=== PATIENT | male | born 1985 | race Asian ===

== ENCOUNTER 2018-07-05 07:18 | Emergency (ER) | payer BC ==
[~2018-07-05] VITALS: Ht 170.2 cm; Wt 109.0 kg
[2018-07-05 07:19] VITALS: RESP 22; Ht 170.2 cm; Wt 109.0 kg
[2018-07-05] MEDS ORDERED: ACETAMINOPHEN 500 MG TAB PO STA (07:31)
[2018-07-05] MEDS ORDERED: ONDANSETRON (ODT) 4 MG TAB ODT STA (07:31)
[2018-07-05] MEDS ORDERED: ONDANSETRON 4 MG INJ IV STA (07:51)
[2018-07-05] MEDS ORDERED: SOD CHLORIDE 0.9% 1,000 ML IV STA (07:51)
[2018-07-05] MEDS ORDERED: ONDA4TAB14 PO (08:52)
[2018-07-05] MEDS ORDERED: ACET325T33 PO (08:52)
[2018-07-05 09:19] VITALS: BP 125/76; PULSE 80
[2018-07-05] MEDS ORDERED: HYDROCODONE/APAP (5/325) TAB PO ONE (09:30)
--- NOTE | 2018-07-05 10:40 | ERD ---
ER Documentation Chief Complaint Chief Complaint NAUSEA/VOMITTING/DIARRHEA/ABD PAIN STARTED AT 4 AM HPI 33-year-old male presenting with nausea vomiting diarrhea. Patient has had abdominal pain since this morning. Has some mild epigastric pain. Has never had this before. Medical history is gout. NKDA. Surgical history denies. Social history smokes less than a pack a day. Drug use occasionally uses cocaine and marijuana however has not use in the last 4 months. ROS All systems reviewed and are negative except as per history of present illness. Medications Home Meds Active Scripts Acetaminophen* (Tylenol*) 325 Mg Tablet, 2 TAB PO Q6 PRN for PAIN AND OR ELEVATED TEMP, #20 TAB Prov:ASHLEY HARRIS PA-C 07/05/18 Ondansetron (Ondansetron Odt) 4 Mg Tab.rapdis, 4 MG PO Q6H PRN for NAUSEA AND/OR VOMITING, #10 TAB Prov:ASHLEY HARRIS PA-C 07/05/18 FmHx Family History: No diabetes, No coronary disease, No other Physical Exam Vitals Vital Signs Date Temp Pulse Resp B/P (MAP) Pulse Ox O2 O2 Flow FiO2 Time Delivery Rate 07/05/18 80 125/76 99 Room Air 09:19 (92) 07/05/18 98.5 90 22 127/86 97 07:19 (100) Physical Exam GENERAL: The patient is well-appearing, well-nourished, in no acute distress HEENT: Atraumatic. Conjunctivae are pink. Pupils equal, round, and reactive to light. There is no scleral icterus. Tympanic membranes clear bilaterally. Oropharynx clear. NECK: C-spine is soft and supple. There is no meningismus. There is no cervical lymphadenopathy. CHEST: Clear to auscultation bilaterally. There are no rales, wheezes or rhonchi. HEART: Regular rate and rhythm. No murmurs, clicks, rubs or gallops. ABDOMEN: Active bowel sounds. No distention. No organomegaly. Tender to palpation in the epigastric region. Result Diagram: 07/05/18 0810 07/05/18 0810 Results 24 hrs Laboratory Tests Test 07/05/18 08:10 White Blood Count 14.2 10^3/ul Red Blood Count 6.25 10^6/ul Hemoglobin 13.5 g/dl Hematocrit 43.6 % Mean Corpuscular Volume 69.8 fl Mean Corpuscular Hemoglobin 21.6 pg Mean Corpuscular Hemoglobin Concent 31.0 g/dl Red Cell Distribution Width 15.1 % Platelet Count 333 10^3/UL Mean Platelet Volume 11.2 fl Immature Granulocytes % 0.600 % Neutrophils % 81.9 % Lymphocytes % 10.7 % Monocytes % 5.7 % Eosinophils % 0.7 % Basophils % 0.4 % Nucleated Red Blood Cells % 0.0 /100WBC Immature Granulocytes # 0.080 10^3/ul Neutrophils # 11.6 10^3/ul Lymphocytes # 1.5 10^3/ul Monocytes # 0.8 10^3/ul Eosinophils # 0.1 10^3/ul Basophils # 0.1 10^3/ul Nucleated Red Blood Cells # 0.0 10^3/ul Urine Color YELLOW Urine Clarity SLIGHTLY CLOUDY Urine pH 5.0 Urine Specific [place] 1.025 Urine Ketones NEGATIVE mg/dL Urine Nitrite NEGATIVE mg/dL Urine Bilirubin NEGATIVE mg/dL Urine Urobilinogen NEGATIVE mg/dL Urine Leukocyte Esterase NEGATIVE [place]/ul Urine Microscopic RBC 0 /HPF Urine Microscopic WBC 2 /HPF Urine Mucus FEW /HPF Urine Hemoglobin 1+ mg/dL Urine Glucose NEGATIVE mg/dL Urine Total Protein NEGATIVE mg/dl Sodium Level 140 mmol/L Potassium Level 3.8 mmol/L Chloride Level 102 mmol/L Carbon Dioxide Level 24 mmol/L Anion Gap 14 Blood Urea Nitrogen 10 mg/dl Creatinine 0.64 mg/dl Est Glomerular Filtrat Rate mL/min > 60 mL/min Glucose Level 126 mg/dl Calcium Level 9.3 mg/dl Total Bilirubin 0.2 mg/dl Direct Bilirubin 0.00 mg/dl Indirect Bilirubin 0.2 mg/dl Aspartate Amino Transf (AST/SGOT) 42 IU/L Alanine Aminotransferase (ALT/SGPT) 38 IU/L Alkaline Phosphatase 93 IU/L Total Protein 8.2 g/dl Albumin 4.5 g/dl Globulin 3.70 g/dl Albumin/Globulin Ratio 1.21 Lipase 45 U/L Current Medications Medications Dose Sig/Maxime Start Time Status Last (Trade) Ordered Route PRN Stop Time Admin Dose Reason Admin Ondansetron 4 mg ONCE STAT 07/05/18 DC 07/05/18 HCl (Zofran ODT 07:31 07/05/18 07:35 Odt) 07:32 1,000 mg ONCE STAT 07/05/18 DC 07/05/18 Acetaminophen PO 07:31 07/05/18 07:35 (Tylenol 07:32 Tab) Sodium 1,000 ml @ Q1H STAT 07/05/18 DC 07/05/18 Chloride 1,000 mls/hr IV 07:51 07/05/18 08:14 08:50 Ondansetron 4 mg ONCE STAT 07/05/18 DC 07/05/18 HCl (Zofran IV 07:51 07/05/18 08:14 Inj) 07:52 1 tab ONCE ONCE 07/05/18 DC 07/05/18 Acetaminophen PO 09:30 07/05/18 09:18 / 09:30 Hydrocodone Bitart ([place] (5/325)) Procedures/MDM DIAGNOSTIC IMAGING REPORT Patient: RADHA MJEÍA : 1985 Age: 33 Sex: M MR #: [id number] DOS: 07/05/18 0751 Ordering MD: LARRY HARRIS PA-C Location: E Room/Bed: PROCEDURE: Ultrasound gallbladder CLINICAL INDICATION: abdominal pain TECHNIQUE: Bonilla scale, color flow and Doppler ultrasound images of the abdomen. COMPARISON: None FINDINGS: Pancreas: Obscured by shadowing bowel gas. Liver: Liver demonstrates normal size and echotexture. No parenchymal lesions are identified. Normal directional flow toward the liver is demonstrated in the main portal vein. Gallbladder: There is a prominent 3.5 cm stone within the gallbladder. No appreciable thickening of the gallbladder wall. No pericholecystic fluid. Biliary system: No significant dilatation of the intrahepatic or extrahepatic biliary system. Common bile duct measures 4.5 mm. Right Kidney: Measures 11.9 cm in length. No hydronephrosis, intrarenal calcification or parenchymal lesion. No abnormal perinephric fluid. Additional findings: None IMPRESSION: Large 3.5 cm echogenic stone within the gallbladder. No wall thickening or pericholecystic fluid to indicate acute inflammation. ER Course: 1L NS given in ED. Zofran given in ED. Patient able to tolerate POs MDM: 3-year-old male presenting with epigastric pain and vomiting. Patient has had cholelithiasis however low suspicion for cholecystitis at this time. Patient's blood work and imaging is within normal limits. Patient is tolerating p.o.'s. I have low suspicion for choledocholithiasis, cholecystitis, cholangitis or pancreatitis. I have low suspicion for dehydration. Patient is discharged with strict ER precautions and supportive medications. He is told if symptoms change or worsen to return immediately to the ER. All questions answered at discharge Departure Diagnosis: Primary Impression: Gallstones Additional Impression: Nausea and vomiting Condition: Stable Patient Instructions: Gallstones, Nausea and Vomiting-Adult Referrals: [facility] YOU HAVE RECEIVED A MEDICAL SCREENING EXAM AND THE RESULTS INDICATE THAT YOU DO NOT HAVE A CONDITION THAT REQUIRES URGENT TREATMENT IN THE EMERGENCY DEPARTMENT. FURTHER EVALUATION AND TREATMENT OF YOUR CONDITION CAN WAIT UNTIL YOU ARE SEEN IN YOUR DOCTORS OFFICE WITHIN THE NEXT 1-2 DAYS. IT IS YOUR RESPONSIBILITY TO MAKE AN APPOINTMENT FOR FOLOW-UP CARE. IF YOU HAVE A PRIMARY DOCTOR --you should call your primary doctor and schedule an appointment IF YOU DO NOT HAVE A PRIMARY DOCTOR YOU CAN CALL OUR PHYSICIAN REFERRAL HOTLINE AT IF YOU CAN NOT AFFORD TO SEE A PHYSICIAN YOU CAN CHOSE FROM THE FOLLOWING [facility] [id number] [facility]. [facility] [address] [facility]. [facility] [address] [facility]. [facility] [address] [facility] [facility] [address] [facility]. [facility]. [address] Additional Instructions: FOLLOW UP WITH YOUR PRIMARY CARE PHYSICIAN TOMORROW.Return to this facility if you are not improving as expected. ASHLEY HARRIS PA-C Jul 05, 2018 10:40
== END 2018-07-05 09:20 | disposition home or self-care (01) ==
LOC: FTE 07:18
DX: K80.20 Calculus of gallbladder without cholecystitis without obstruction (principal)
CPT/HCPCS: 36415; 76705; 80053; 81001; 83690; 85025; 96361; 96374; 99285; J2405; J7030